=== PATIENT | female | born 2000 | race Two or more races ===

== ENCOUNTER 2020-06-25 18:08 | Emergency (ER) | payer MEDICAID ==
[~2020-06-25] VITALS: Ht 162.6 cm; Wt 54.4 kg
[2020-06-25 18:40] VITALS: BP 132/78
--- NOTE | 2020-06-25 18:40 | NUR ---
ED Nurse Note: Pt walked into ED for L lower abdominal pain x1 month. Pt states last period was on 01/16. She says she had had 3 - tests. Pt is alert and orientedx4, ambulatory. Pt has been seen by PA. She denies NVD.
--- NOTE | 2020-06-25 19:20 | Emergency Room Report ---
History of Present Illness General Chief Complaint: Abdominal Pain Source: Patient (Maryjane Miranda) Present Illness HPI 19 YO female presents to the ED c/o abdominal bloating, pain and LLQ cramping x 1 month intermittently. Pt. denies nausea or vomiting. She denies fevers or chills. She reports LMP was december 2019. She denies and reports she had both urine and blood performed on Tuesday at [facility] and were negative for . Pt. denies vaginal DC. She denies constipation or diarrhea. She denies significant PMHx. She denies hematuria, dysuria or urinary frequency. 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 Reviewed Nursing Documentation: PMH: Agreed; PSxH: Agreed (Maryjane Miranda) Nursing Documentation-PMH Past Medical History: No Stated History (Maryjane Miranda) Review of Systems All Other Systems: negative except mentioned in HPI (Maryjane Miranda) Physical Exam Vital Signs Date Time Temp Pulse Resp B/P (MAP) Pulse Ox O2 Delivery O2 Flow Rate FiO2 06/25/20 18:30 98.8 88 18 137/80 (99) 98 Room Air Sp02 EP Interpretation: reviewed, normal General Appearance: no apparent distress, alert, GCS 15, non-toxic Head: normocephalic, atraumatic Eyes: bilateral eye normal inspection, bilateral eye PERRL ENT: hearing grossly normal, normal voice Neck: full range of motion Respiratory: chest non-tender, lungs clear, normal breath sounds, speaking full sentences Cardiovascular #1: regular rate, rhythm Gastrointestinal: normal bowel sounds, non tender - NO localized or diffuse TTP. , distended, other - Patient has visibly gravid abdomen and bedside Doppler Demonstrates with a heart rate of 126. This does not coincide with pt. HR palpated. Genitourinary: normal inspection, no CVA tenderness Musculoskeletal: back normal, normal range of motion, gait/station normal, non- tender Neurologic: alert, motor strength/tone normal, oriented x3, sensory intact, responsive, speech normal Psychiatric: judgement/insight normal Skin: no rash, normal color Lymphatic: no adenopathy (Maryjane Miranda) Medical Decision Making PA Attestation Dr. Piper Is my supervising Physician whom patient management has been discussed with. (Maryjane Miranda) Diagnostic Impression: Primary Impression: UTI (urinary tract infection) during Qualified Codes: O23.41 - Unspecified infection of urinary tract in , first trimester Additional Impression: Threatened in early ER Course 19 YO female presents to the ED c/o abdominal bloating, pain and LLQ cramping x 1 month intermittently. Pt. denies nausea or vomiting. She denies fevers or chills. She reports LMP was december 2019. She denies and reports she had both urine and blood performed on Tuesday at [facility] and were negative for . Pt. denies vaginal DC. She denies constipation or diarrhea. She de nies significant PMHx. She denies hematuria, dysuria or urinary frequency. Ddx considered but are not limited to Diverticulitis, acute appy, diarrhea,UC, PUD, GE, pancreatitis, gallstone, ovarian torsion, ectopic , PID tubo-ovarian abscess. Vital signs: are WNL, pt. is afebrile H&PE are most consistent with what appears to be gravid female NAD, non-toxic in appearance. Patient has visibly gravid abdomen and bedside Doppler Demonstrates with a heart rate of 156. This does not coincide with pt. HR palpated. ORDERS: -CBC, CMP, LIPASE: Results pending at time of sign out. -UA: evidence of UTI -URINE HCG: Positive -Hcg Quant: -Pelvic ultrasound OB- Prelim from US tech: IUP- normal approx 25 wks. FHR 147 ED INTERVENTIONS: - -D/w pt. results of labs and imaging. She is now D.w pt. need for urgent and close OBGYN follow up. DISCHARGE: At this time pt. is stable for d/c to home. Will provide printed patient care instructions, and any necessary prescriptions. Care plan and follow up instructions have been discussed with the patient prior to discharge. (Maryjane Miranda) ER Course Please see above note. Labs reviewed. Rocephin had been administered. Discussed results with patient and treatment plan. Patient stable for outpatient observation and treatment. Laboratory Tests Test 06/25/20 19:16 06/25/20 20:00 Urine Color Pale yellow Urine Appearance Slightly cloudy Urine pH 6 (4.5-8.0) Urine Specific [place] 1.015 (1.005-1.035) Urine Protein Negative (NEGATIVE) Urine Glucose (UA) Negative (NEGATIVE) Urine Ketones Negative (NEGATIVE) Urine Blood 1+ (NEGATIVE) H Urine Nitrite Negative (NEGATIVE) Urine Bilirubin Negative (NEGATIVE) Urine Urobilinogen Normal MG/DL (0.0-1.0) Urine Leukocyte Esterase 3+ (NEGATIVE) H Urine RBC 5-10 /HPF (0 - 2) H Urine WBC 60-80 /HPF (0 - 2) H Urine Squamous Epithelial Cells Moderate /LPF (NONE/OCC) H Urine Bacteria Moderate /HPF (NONE) H Urine HCG, Qualitative Positive (NEGATIVE) White Blood Count 5.7 K/UL (4.8-10.8) Red Blood Count 3.94 M/UL (4.20-5.40) L Hemoglobin 9.1 G/DL (12.0-16.0) L Hematocrit 30.1 % (37.0-47.0) L Mean Corpuscular Volume 76 FL (80-99) L Mean Corpuscular Hemoglobin 23.2 PG (27.0-31.0) L Mean Corpuscular Hemoglobin Concent 30.3 G/DL (32.0-36.0) L Red Cell Distribution Width 15.8 % (11.6-14.8) H Platelet Count 237 K/UL (150-450) Mean Platelet Volume 8.1 FL (6.5-10.1) Neutrophils (%) (Auto) 58.0 % (45.0-75.0) Lymphocytes (%) (Auto) 32.4 % (20.0-45.0) Monocytes (%) (Auto) 8.0 % (1.0-10.0) Eosinophils (%) (Auto) 0.9 % (0.0-3.0) Basophils (%) (Auto) 0.7 % (0.0-2.0) Sodium Level 139 MMOL/L (136-145) Potassium Level 3.2 MMOL/L (3.5-5.1) L Chloride Level 104 MMOL/L (98-107) Carbon Dioxide Level 22 MMOL/L (21-32) Anion Gap 13 mmol/L (5-15) Blood Urea Nitrogen 6 mg/dL (7-18) L Creatinine 0.5 MG/DL (0.55-1.30) L Estimated Glomerular Filtration Rate > 60 mL/min (>60) Glucose Level 73 MG/DL (74-106) L Calcium Level 8.8 MG/DL (8.5-10.1) Total Bilirubin 0.3 MG/DL (0.2-1.0) Aspartate Amino Transferase (AST) 28 U/L (15-37) Alanine Aminotransferase (ALT) 25 U/L (12-78) Alkaline Phosphatase 69 U/L (46-116) Total Protein 7.0 G/DL (6.4-8.2) Albumin 3.1 G/DL (3.4-5.0) L Globulin 3.9 g/dL Albumin/Globulin Ratio 0.8 (1.0-2.7) L Lipase 149 U/L (73-393) Human Chorionic Gonadotropin, Quant 20894 mIU/mL (1-6) H (Baldemar Piper MD) CT/MRI/US Diagnostic Results CT/MRI/US Diagnostic Results : Imaging Test Ordered: Pelvic US OB Impression " Single live IUP approximately 24 weeks and 4 days with a heart rate of 147, breech presentation with a posterior placenta." --Per official radiology report- Please see report for specific details. (Maryjane Miranda) Last Vital Signs Date Time Temp Pulse Resp B/P (MAP) Pulse Ox O2 Delivery O2 Flow Rate FiO2 06/25/20 18:30 98.8 88 18 137/80 (99) 98 Room Air Status: improved (Maryjane Miranda) Last Vital Signs Date Time Temp Pulse Resp B/P (MAP) Pulse Ox O2 Delivery O2 Flow Rate FiO2 06/25/20 18:40 98.8 80 16 132/78 98 Room Air 06/25/20 18:40 98 Status: improved (Baldemar Piper MD) Disposition: HOME, SELF-CARE Condition: Improved Signed Out To: Dr. Piper (Maryjane Miranda) Scripts Nitrofurantoin Monohyd/M-Cryst* (MACROBID 100 MG*) 100 Mg Capsule 100 MG ORAL EVERY 12 HOURS, #14 CAP Prov: Baldemar Piper MD 06/25/20 Vit37/Iron/Folic Acid (PRENATA CHEWABLE TABLET) 1 Each Tab.chew 1 EACH PO DAILY, #30 TAB Prov: Baldemar Piper MD 06/25/20 Referrals: [facility],REFERRING (PCP) Maryjane Miranda Jun 25, 2020 19:20 Baldemar Piper MD Jun 26, 2020 01:27
[2020-06-25 19:35] LABS: APPEARANCE,URINE SLIGHTLY CLOUDY; BILIRUBIN, URINE NEGATIVE (NEGATIVE); COLOR,URINE PALE YELLOW; GLUCOSE, URINE (UA) NEGATIVE (NEGATIVE); KETONES,URINE NEGATIVE (NEGATIVE); LEUKOCYTE ESTERASE ,URINE 3+ (NEGATIVE); NITRITE,URINE NEGATIVE (NEGATIVE); PH,URINE 6 (4.5-8.0); PROTEIN,URINE NEGATIVE (NEGATIVE); UROBILINOGEN,URINE NORMAL MG/DL (0.0-1.0)
--- NOTE | 2020-06-25 20:16 | Diagnostic Imaging Report ---
EXAM: US Second or Third Trimester , Transabdominal CLINICAL HISTORY: ABD PAIN TECHNIQUE: Real-time transabdominal obstetrical ultrasound of the maternal pelvis and a second or third trimester with image documentation. COMPARISON: No relevant prior studies available. FINDINGS: Fetus: Single live IUP approximately 24 weeks and 4 days. Heart rate: heart rate 147 BPM. Presentation: Breech presentation. Placenta: Posterior placenta. Amniotic fluid: HEMALATHA 14.2. Anatomy: Intracranial/face anatomy seen. Spinal anatomy seen. Abdominal anatomy seen. Extremities seen. Four-chamber heart seen. Umbilical cord seen. BIOMETRICS Gestational age: 24 weeks and 4 days. MARLENA: MARLENA 10/11/2020. EFW: EFW 736 g. BPD: BPD 6.26 cm. HC: HC 21.67 cm. AC: AC 21.13 cm. FL: FL 4.24 cm. MATERNAL: Uterus: Unremarkable. Cervix: Unremarkable as visualized. Free fluid: No free fluid. IMPRESSION: Single live IUP approximately 24 weeks and 4 days.
[2020-06-25 20:21] LABS: BASOPHILS % (AUTO) 0.7 % (0.0-2.0); EOSINOPHILS % (AUTO) 0.9 % (0.0-3.0); HEMATOCRIT 30.1 % (37.0-47.0); HEMOGLOBIN 9.1 G/DL (12.0-16.0); LYMPHOCYTES % (AUTO) 32.4 % (20.0-45.0); MEAN CORPUSCULAR VOLUME 76 FL (80-99); PLATELET COUNT 237 K/UL (150-450); RED BLOOD COUNT 3.94 M/UL (4.20-5.40); RED CELL DISTRIBUTION WIDTH 15.8 % (11.6-14.8); WHITE BLOOD COUNT 5.7 K/UL (4.8-10.8)
[2020-06-25] MEDS ORDERED: cefTRIAXone 1 GM in NS 55 ML IVPB ONE (20:30)
[2020-06-25 21:14] LABS: ALANINE AMINOTRANSFERASE 25 U/L (12-78); ALBUMIN 3.1 G/DL (3.4-5.0); ALBUMIN/GLOBULIN RATIO 0.8 (1.0-2.7); ALKALINE PHOSPHATASE 69 U/L (46-116); ANION GAP 13 mmol/L (5-15); ASPARTATE AMINO TRANSFERASE 28 U/L (15-37); BILIRUBIN,TOTAL 0.3 MG/DL (0.2-1.0); BLOOD UREA NITROGEN 6 mg/dL (7-18); CALCIUM 8.8 MG/DL (8.5-10.1); CARBON DIOXIDE 22 MMOL/L (21-32); CHLORIDE 104 MMOL/L (98-107); CREATININE 0.5 MG/DL (0.55-1.30); POTASSIUM 3.2 MMOL/L (3.5-5.1); SODIUM 139 MMOL/L (136-145)
[2020-06-25] MEDS ORDERED: NITROFURANTOIN100 M2 ORAL (21:24)
[2020-06-25] MEDS ORDERED: PRENATA CHEWAB1 EACH PO (21:24)
--- NOTE | 2020-06-25 21:26 | NUR ---
ER DISCHARGE NOTE: Patient is cleared to be discharged per ERMD, pt is aox4, on room air, with stable vital signs. pt was given dc, pt was able to verbalize understanding, pt id band and iv site removed without complications. pt is able to ambulate with steady gait. pt took all belongings.
[2020-06-27 11:19] VITALS: BP 132/78
== END 2020-06-25 19:30 | disposition home or self-care (01) ==
LOC: EMR 18:19
DX: O23.42 Unspecified infection of urinary tract in pregnancy, second trimester (principal); O20.0 Threatened abortion; Z3A.24 24 weeks gestation of pregnancy
CPT/HCPCS: 36415; 76805; 76817; 80053; 81003; 81025; 83690; 84702; 85025; 87086; 96365; J0696; Z7502; 99284